=== PATIENT | male | born 1955 | race Caucasian/White ===

== ENCOUNTER 2020-08-04 11:34 | Day surgery (SDC) | payer BC ==
[~2020-08-04] VITALS: Ht 175.3 cm; Wt 87.0 kg
[2020-08-04 11:55] VITALS: BP 140/101
[2020-08-04] MEDS ORDERED: TICAGRELOR 90 MG TABLET ONE (11:56)
[2020-08-04] MEDS ORDERED: LIDOCAINE-MPF 1%, 5ML ONE (11:56)
[2020-08-04] MEDS ORDERED: BIVALIRUDIN 250 MG ONE (11:56)
[2020-08-04] MEDS ORDERED: FENTANYL PF 100 MCG/2ML ONE (11:56)
[2020-08-04] MEDS ORDERED: VERAPAMIL 2.5 MG/ML, 2ML ONE (11:56)
[2020-08-04] MEDS ORDERED: HEPARIN 1,000 UNITS/ML, 10ML ONE (11:56)
[2020-08-04] MEDS ORDERED: MIDAZOLAM 1 MG/ML, 5ML ONE (11:56)
[2020-08-04] MEDS ORDERED: SODIUM CHLORIDE 0.9% 1,000 ML IV SCH ×2 (12:00→13:30)
[2020-08-04] MEDS ORDERED: GABA600T7 PO (12:11)
[2020-08-04] MEDS ORDERED: DULO30CA2 PO (12:11)
[2020-08-04] MEDS ORDERED: ASPI81TA45 PO (12:11)
[2020-08-04] MEDS ORDERED: HYDR-3246 PO (12:11)
[2020-08-04] MEDS ORDERED: LOSA25TA25 PO (12:11)
[2020-08-04] MEDS ORDERED: CARV-39 PO (12:11)
[2020-08-04] MEDS ORDERED: ALIR75PE INJ (12:11)
[2020-08-04 12:35] LABS: ANION GAP 4 mmol/L (5-15); BASOPHILS % (AUTO) 1 % (0-1); CALCIUM 9.1 mg/dL (8.5-10.1); CHLORIDE 105 mmol/L (98-107); CREATININE 1.02 mg/dL (0.7-1.3); EOSINOPHILS % (AUTO) 2 % (1-7); LYMPHOCYTES % (AUTO) 24 % (22-44); MEAN CORPUSCULAR HEMOGLOBIN 30.7 pg (27.5-34.5); MEAN CORPUSCULAR HGB CONC 33.8 g/dL (33.2-36.2); MEAN PLATELET VOLUME 8.7 fL (7.4-10.4); MONOCYTES % (AUTO) 9 % (2-9); NEUTROPHILS % (AUTO) 65 % (42-75); PLATELET COUNT 212 x10^3/uL (130-400); RED BLOOD COUNT 5.17 x10^6/uL (4.38-5.82); RED CELL DISTRIBUTION WIDTH 12.5 % (9.4-14.8)
[2020-08-04 12:38] LABS: MD NO
== END 2020-08-04 15:06 | disposition home or self-care (01) ==
LOC: CACL 11:34
PROVIDERS: ATTEND Internal Medicine Cardiovascular Disease
DX: I25.110 Atherosclerotic heart disease of native coronary artery with unstable angina pectoris (principal); I25.82 Chronic total occlusion of coronary artery; I25.9 Chronic ischemic heart disease, unspecified; I10 Essential (primary) hypertension; I25.2 Old myocardial infarction; Z79.02 Long term (current) use of antithrombotics/antiplatelets; E78.5 Hyperlipidemia, unspecified; Z79.82 Long term (current) use of aspirin; Z79.891 Long term (current) use of opiate analgesic; Z79.899 Other long term (current) drug therapy; Z82.49 Family history of ischemic heart disease and other diseases of the circulatory system
CPT/HCPCS: 36415; 80048; 85025; 93459; 99156; 99157; C1769; C1894; J1644; J2250; J3010; Q9967; 93458; J0583